=== PATIENT | female | born 1960 | race African-American/Black ===

== ENCOUNTER 2017-03-07 18:52 | Emergency (ER) | payer OTHER ==
--- NOTE | ~2017-03-07 | EKG ---
PATIENT: AMRITA WYNN UNIT #: [id number] Ventricular Rate: 81 BPM Atrial Rate: 81 BPM P-R Interval: 144 ms QRS Duration: 88 ms Q-T Interval: 366 ms QTC Calculation(Bezet): 425 ms P Fults: 79 degrees Calculated R Fults: 88 degrees Calculated T Fults: 78 degrees Diagnosis Line: Normal sinus rhythm Diagnosis Line: Early repolarization Diagnosis Line: Normal ECG Diagnosis Line: No previous ECGs available Diagnosis Line: Confirmed by GOLDY MOORE MD ([id number]) on Diagnosis Line: 03/08/2017 8:22:53 AM INTERPRETING MD: TERESA COVINGTON
[~2017-03-07 18:52] MED LIST: ACETAMINOPHEN PO; ANTIVERT PO; LEVAQUIN PO; MACROBID100 MG PO; MICRO-K PO; MUCINEX DM1 TAB.SR . PO; PROAIR HFA8.5 GM IH; TYLENOL SINUS C
[2017-03-07 20:12] LABS: URINE SOURCE CLEAN CATCH
[2017-03-07 20:13] LABS: CALCIUM SERUM 9.1 mg/dL (8.4-10.2); CREATININE SERUM 0.9 mg/dL (0.6-1.4); GLOM FILT RATE Estimated 82.3 mL/min (>60); POTASSIUM 3.7 mmol/L (3.5-5.1)
[2017-03-07 20:21] LABS: URINE APPEARANCE CLEAR; URINE BILIRUBIN NEG (NEG); URINE BLOOD NEG (NEG); URINE COLOR YELLOW; URINE GLUCOSE NEG (NEG); URINE KETONE NEG (NEG); URINE LEUKOCYTE ESTERASE TRACE (NEG); URINE NITRATE NEG (NEG); URINE PH 5.5 (5-8); URINE PROTEIN NEG (NEG); URINE SPECIFIC GRAVITY 1.013 (1.003-1.035)
[2017-03-07 20:24] LABS: U HYALINE CASTS AUWI 0-2 /[LPF]; URBCS1 AUWI 0-2 /[HPF] (0-2); URINE BACTERIA AUWI NEG (NEGATIVE); URINE SQUAMOUS EPITHELIAL CELL NONE SEEN /[HPF]
[2017-03-07 21:33] LABS: BASOPHIL# 0.2 X10e3 (0-0.3); BASOPHIL% 1.1 % (0-2.5); EOSINOPHIL# 0.1 X10e3 (0-0.7); EOSINOPHIL% 0.9 % (0.0-7.0); LYMPHOCYTE# 3.4 X10e3 (1.0-3.5); LYMPHOCYTE% 23.7 % (17.0-45.0); MEAN CELL VOLUME 81.2 FL (83-96); MEAN CORPUSCULAR HEMOGLOBIN 26.1 PG (28-34); MEAN CORPUSCULAR HGB CONC 32.2 g/dL (30-36); MEAN PLATELET VOLUME 8.6 FL (6.5-11.5); MONOCYTE# 0.9 X10e3 (0-1.0); MONOCYTE% 6.4 % (3.0-12.0); NEUTROPHIL# 9.7 X10e3 (1.5-7.1); NEUTROPHIL% 67.9 % (40-75); PLATELET COUNT 338 X10e3 (140-420); RED BLOOD COUNT 3.81 X10e (3.90-5.30); RED CELL DISTRIBUTION WIDTH 12.9 % (11.0-15.5); WHITE BLOOD COUNT 14.3 X10e3 (4.0-10.5)
[2017-03-07 21:36] LABS: DIFF IND NO
== END 2017-03-07 22:03 | disposition home or self-care (01) ==
LOC: CED 18:52
PROVIDERS: Emergency Medicine
DX: R55 Syncope and collapse (principal); E86.0 Dehydration; F17.210 Nicotine dependence, cigarettes, uncomplicated
CPT/HCPCS: 36415; 80048; 81003; 85025; 93005; 96360; 99284

== ENCOUNTER → 2017-05-01 | Outpatient (CLI) | payer OTHER ==
--- NOTE | ~2017-05-01 | US136 ---
[facility] A Service of [facility] RADIOLOGY TEXT RESULTS PATIENT: AMRITA WYNN LOCATION: CNIV : 58 UNIT #: [id number] AGE: [address]: OSMAN ZAVALA SEX: F ORDER DR: [id number] [facility] [address] [place], [place] [address] [id number] O MR#: [id number] Acc #: [id number] NAME: AMRITA WYNN : 1960 SEX: F STUDY DATE/TIME: 05/01/2017 11:41 UNIT: CNIV ROOM: STUDY DESCRIPTION: US U/L Ext [employer] Bilat Attending Physician: Osman Zavala Referring Physician: Osman Zavala Ordering Physician: Osman Zavala Primary Care Physician: [facility] MEDICAL IMAGING REPORT This report is preliminary unless electronic signature is present EXAM Resting bilateral ankle-brachial index measurement, 05/01/2017. HISTORY 57-year-old female referred for cramping bilateral leg pain, present for several months. Claudication associated with peripheral vascular disease is being considered. Patient has a history of hypertension and smoking. TECHNIQUE Cuff pressure measurements were obtained at brachial, ankle and great toe levels bilaterally with separate dorsalis pedis and posterior tibial measurements at each ankle. The pulse volume recordings and segmental Doppler waveforms were also obtained. FINDINGS Resting ankle-brachial indices are normal or near-normal bilaterally. On the right, dorsalis pedis and posterior tibial ankle-brachial indices measure 0.95 and 0.94. On the left, dorsalis pedis and posterior tibial ankle-brachial indices measure 0.97 and 0.86. Minimal to mild calf vessel disease at the left posterior tibial artery is possible based on the GINGER. Great toe pressures are mildly decreased when compared with ankle pressures with indices measuring 0.66 on the right and 0.52 on the left. This may be secondary to vasospasm or cold feet, but peripheral small vessel arterial occlusive disease is possible. IMPRESSION 1. Resting ankle-brachial indices are normal or near-normal bilaterally. There is no evidence of significant lower extremity arterial occlusive disease at rest. 2. Dorsalis pedis ABIs measures 0.95 on the right 0.97 on the left. 3. Posterior tibial ABIs measures 0.94 on the right and 0.86 on the left. [facility] A Service of [facility] RADIOLOGY TEXT RESULTS PATIENT: AMRITA WYNN LOCATION: [facility] : 58 UNIT #: [id number] AGE: [address]: OSMAN ZAVALA SEX: F ORDER DR: Dictated by... Forrest Narvaez M.D. THIS IS AN ELECTRONICALLY VERIFIED REPORT Forrest Narvaez M.D. at 05/01/2017 11:07 PM JANIA/erwin TD: 05/01/2017 21:14 JOB #: [id number] MEDICAL IMAGING REPORT Page 1 of 1 COPY
== END | disposition home or self-care (01) ==
LOC: CNIV 11:35
DX: R25.2 Cramp and spasm (principal)
CPT/HCPCS: 93922